=== PATIENT | female | born 1985 | race Caucasian/White ===

== ENCOUNTER 2019-07-23 06:15 | Day surgery (SDC) | payer OTHER ==
[2019-07-11 11:09] VITALS: BMI 39.3
[2019-07-23] MEDS ORDERED: BUPIVACAINE HCL/PF 2.5 MG/ML - 30 ML VIAL IJ ONE (07:24)
[2019-07-23] MEDS ORDERED: MIDAZOLAM HCL 2 MG/2 ML SINGLE DOSE VIAL ONE (07:46)
[2019-07-23] MEDS ORDERED: PROPOFOL 20 ML ONE ×3 (07:47→08:32)
[2019-07-23] MEDS ORDERED: ROCURONIUM BROMIDE 50 MG/5 ML SYRINGE ONE (07:47)
[2019-07-23] MEDS ORDERED: SUCCINYLCHOLINE CHLORIDE 200 MG/10 ML SYRINGE ONE (07:47)
[2019-07-23] MEDS ORDERED: EPHEDRINE SULFATE/0.9% NACL/PF 50 MG/10 ML SYRINGE NR ONE (07:48)
[2019-07-23] MEDS ORDERED: LIDOCAINE HCL/PF 2% SDV 5ML VIAL ONE (08:11)
[2019-07-23] MEDS ORDERED: ONDANSETRON 4 MG/2 ML VIAL ONE ×2 (08:18→10:39)
[2019-07-23] MEDS ORDERED: DEXAMETHASONE SOD PHOSPHATE 4 MG/1 ML VIAL ONE (08:18)
[2019-07-23] MEDS ORDERED: ceFAZolin SODIUM 1 GM VIAL ONE (08:18)
[2019-07-23] MEDS ORDERED: KETOROLAC TROMETHAMINE 30 MG/1 ML VIAL ONE (08:22)
[2019-07-23] MEDS ORDERED: NEOSTIGMINE METHYLSULFATE 0.5 MG/ML - 10 ML MDV ONE (08:23)
[2019-07-23] MEDS ORDERED: GLYCOPYRROLATE 0.2 MG/1 ML VIAL ONE ×2 (08:23→09:52)
[2019-07-23] MEDS ORDERED: PHENYLEPHRINE HCL 10 MG/1 ML SINGLE DOSE VIAL ONE (09:11)
[2019-07-23] MEDS ORDERED: DESFLURANE GAS 240 ML BOTTLE IH ONE (09:24)
[2019-07-23] MEDS ORDERED: BUPIVACAINE HCL/PF 0.25% (2.5MG/ML) 10 ML VIAL IJ ONE (09:42)
[2019-07-23] MEDS ORDERED: PROMETHAZINE HCL 50 MG/1 ML AMP IM PRN (10:03)
[2019-07-23] MEDS ORDERED: ONDANSETRON 4 MG/2 ML VIAL IVPUSH PRN ×2 (10:03→10:17)
[2019-07-23] MEDS ORDERED: oxyCODONE HCL 5 MG TABLET PO PRN ×3 (10:03→10:17)
--- NOTE | 2019-07-23 10:11 | OP ---
Operative Note - Note: Operative Date: 07/23/19 Pre-Operative Diagnosis: Epigastric Pain. GE Reflux Disease. Malfunctioning Implantable Device secondary to Gastric Band Operation: Removal of Gastric Band plus subcutaneous port component. Laparoscopic Lysis of Adhesions. Excision of fibrous capsule around stomach. Diagnostic Laparoscopy Findings: Large amount of adhesions between omentum and abdominal wall in LUQ. Also adhesions between omentum and left lobe of liver Fibrous capsule noted around stomach and gastric band Post-Operative Diagnosis: Same as Pre-op (Abdominal adhesions; fibrous capsule around stomach) Surgeon: Phil Knox Sports Photographer: Jose Lees Anesthesia: General Specimens Removed: Gastric Band plus sub-Q port component Estimated Blood Loss (mls): 30 Operative Report Dictated: Yes
[2019-07-23] MEDS ORDERED: FAMOTIDINE 20 MG/50 ML IVPB 20 MG/50 ML MG IVPB ONE (10:15)
[2019-07-23] MEDS ORDERED: SODIUM CHLORIDE 1,000 ML IV SCH (10:15)
--- NOTE | 2019-07-23 10:18 | SURG ---
Surgery Printer Assistant Note Printer Assistant: Jose Lees PA-C Date of Service: 07/23/19 Diagnosis: Epigastric Pain. GE Reflux Disease. Malfunctioning Implantable Device secondary to Gastric Band Procedure: Removal of Gastric Band plus subcutaneous port component. Laparoscopic Lysis of Adhesions. Excision of fibrous capsule around stomach. Diagnostic Laparoscopy I was present for the entirety of the operative procedure. For further detail, please refer to operative report. Visit type - Case Type Case Type: Scheduled - Emergency Emergency Visit: No - New patient This patient is new to me today: Yes Date on this admission: 07/23/19 - Critical Care Critical Care patient: No
[2019-07-23] MEDS ORDERED: FAMOTIDINE 20 MG PREMIXED IVPB IVPB ONE (10:20)
[2019-07-23] MEDS ORDERED: LACTATED RINGERS SOLUTION 1,000 ML IV SCH (10:30)
[2019-07-23] MEDS ORDERED: oxyCODONE HCL 5 MG TABLET ONE (11:40)
[2019-07-23] MEDS ORDERED: ENOXAPARIN NA (PORCINE) 40 MG/0.4 ML DISP.SYRIN SQ ONE ×2 (12:52→13:00)
[2019-07-23] MEDS ORDERED: ENOXAPARIN NA (PORCINE) 40 MG/0.4 ML DISP.SYRIN SQ SCH (13:00)
--- NOTE | 2019-07-23 13:04 | OP ---
DATE OF OPERATION: 07/23/2019 PREOPERATIVE DIAGNOSES: 1. Epigastric abdominal pain. 2. Gastroesophageal reflux disease. 3. Mechanical complication of implantable device secondary to gastric band. POSTOPERATIVE DIAGNOSES: 1. Epigastric abdominal pain. 2. Gastroesophageal reflux disease. 3. Mechanical complication of implantable device secondary to gastric band. 4. Abdominal adhesions. 5. Fibrous capsule around the stomach. PROCEDURE PERFORMED: 1. Removal of gastric band plus subcutaneous port component. 2. Laparoscopic lysis of adhesions. 3. Excision of fibrous capsule around the stomach. 4. Diagnostic laparoscopy. OPERATING SURGEON: Xander Freedman MD MANAGER OF PLANNING: JIM Plunkett ANESTHESIA: General. OPERATIVE PROCEDURE: The patient was brought in to the operating room, placed on the OR table in the supine position. All precautions were taken initially including padding for the back and the feet and Venodyne boots were placed on both lower extremities. At that point the abdomen was prepped and draped in the usual manner. A Veress needle was placed in the left upper quadrant and a pneumoperitoneum was established. With the use of a number 5 trocar and Optiport under direct vision, a number 5 trocar, bladeless, was placed in the left upper quadrant. Through that trocar, a laparoscopic camera was placed. There were noted to be adhesions between the omentum and anterior abdominal wall and also in the upper abdomen by the liver and the band. A number 5 bladeless trocar was then placed below the left costal margin. With the camera now placed in that trocar, the left upper quadrant trocar was used to lyse the adhesions, mostly with blunt dissection, but also sharp dissection with the laparoscopic scissors. This was extensive, and once it was done, a clearing was now in the upper abdomen. A number 15 bladeless trocar was placed in the right upper quadrant along with a number 5 bladeless trocar. A Leslie liver retractor was then placed in the epigastrium in an attempt to retract the left lobe of the liver. However, the trocar could not be placed underneath the left lobe as there was a large amount of omentum attached to the undersurface of the left lobe of the liver. As the content assistant surgeon retracted the band tubing, which went through this omental tissue upwards toward the anterior abdominal wall, the content assistant surgeon placed a laparoscopic instrument inferior to the liver and lifted the left lobe up. The LigaSure device was now used to dissect the omentum off the lesser curvature of the liver. This was done from lesser curvature to greater curvature until the omentum was removed and the entire liver was now exposed. With the liver retractor now retracting the left lobe, the patient was placed in 20-degree reverse Trendelenburg position by Anesthesia. The band tubing was noted and the content assistant surgeon retracted the band tubing towards the patient's left side and the operating surgeon used the electrocautery to dissect the scar tissue off the band tubing. This continued until the band was reached around the stomach. The scar tissue around the band was now dissected with electrocautery on the entire lesser curve until the entire band on the lesser curve was in full view. At this point, the operating surgeon grabbed the tubing and pulled it toward the patient's right side as the content assistant surgeon gently retracted the stomach inferiorly by the band. Here, electrocautery was used to dissect the scar tissue and the fibrous capsule off the band until the entire anterior surface of the band was in full view. The band was then opened and the band tubing was cut at the take off to the subcutaneous port and then band was then removed from around the stomach and sent off the field as specimen to Pathology. Attention was now directed to the fibrous capsule around the stomach, which was dissected off the stomach wall very gently with a laparoscopic scissors. Once this was completed, saline was placed around the upper part of the stomach, where the band and the dissection had been performed. Anesthesia then injected air into the orogastric tube, which showed the entire stomach distended and there were no signs of any bubbles. At this point, under direct vision, all trocars were removed from the abdominal cavity and pneumoperitoneum was released. The number 15 trocar site in the right upper quadrant was now extended laterally and dissection continued with electrocautery down to the port on the right anterior rectus muscle. The fibrous capsule around the port was removed with electrocautery and the port and the rest of the tubing were removed from the operative field and sent off the field as a specimen to Pathology with the rest of the band. At this juncture, all trocar sites received 0.25% Marcaine. The number 15 trocar site was closed with 3-0 Vicryl in the subcutaneous tissue and all trocar sites were closed with 4-0 Biosyn in subcuticular fashion. Dressings were applied. Patient awoken from anesthesia and transferred out of the operating room to the recovery room in stable condition. Anesthesia in the case was general. Surgeon, Dr. Freedman. Saw Superintendent, Jose Lees, physician's content assistant. Expected blood loss 30 mL. Patient transferred to recovery room in stable condition. XANDER FREEDMAN M.D. [id number]
[2019-07-23 13:31] VITALS: TEMP 98
[2019-07-23 14:02] VITALS: BP 108/78; PULSE 75
[2019-07-23] MEDS ORDERED: FAMOTIDINE 20 MG/50 ML IVPB 20 MG/50 ML MG IVPB SCH (22:00)
[2019-07-24] MEDS ORDERED: ENOXAPARIN NA (PORCINE) 40 MG/0.4 ML DISP.SYRIN SQ SCH (10:00)
--- NOTE | 2019-07-25 17:48 | PATH ---
Surgical Pathology Report Patient Name: JOANNE LACEY [facility]. Rec. #: [id number] /Age/Gender: 1985 (Age: 34) / F Account: [id number] Location: [facility] Taken: 07/22/2019 Received: 07/23/2019 Reported: 07/25/2019 Physicians: Phil Knox M.D. Specimen(s) Received EXPLANTED BAND AND PORT Clinical History Mechanical complication Final Diagnosis EXPLANTED GASTRIC BAND AND PORT, REMOVAL: GASTRIC BAND AND PORT. MACROSCOPIC DIAGNOSIS. Electronically Signed Yuliya Rouse M.D. Gross Description Received fresh labeled "explanted band and port," is a 4.5 cm in diameter white, circular device, consistent with a gastric band. The band displays a 30 cm in length portion of white tubing extending from one aspect. Also received within the same container is a 3 cm in diameter x 1.5 cm in depth white, circular device, consistent with a port. The port displays a 27 cm in length portion of white tubing extending from one aspect. No soft tissue is present. No sections are submitted, gross only. DL/07/24/2019 saudi07/24/2019
== END 2019-07-23 14:00 | disposition home or self-care (01) ==
LOC: FASU 06:15
PROVIDERS: ATTEND Surgery
PROC: 0DN64ZZ Release Stomach, Percutaneous Endoscopic Approach (ICD-10-PCS; 2019-07-23)
PROC: 0DP64CZ Removal of Extraluminal Device from Stomach, Percutaneous Endoscopic Approach (ICD-10-PCS; principal; 2019-07-23 08:32)
DX: T85.518A Breakdown (mechanical) of other gastrointestinal prosthetic devices, implants and grafts, initial encounter (principal); K95.09 Other complications of gastric band procedure; K31.89 Other diseases of stomach and duodenum; R10.13 Epigastric pain; K21.9 Gastro-esophageal reflux disease without esophagitis; K66.0 Peritoneal adhesions (postprocedural) (postinfection); Y73.3 Surgical instruments, materials and gastroenterology and urology devices (including sutures) associated with adverse incidents; Y93.89 Activity, other specified; Y92.89 Other specified places as the place of occurrence of the external cause
CPT/HCPCS: 74241-TC-FY; 81025; 87081; 94760

== ENCOUNTER 2020-03-26 12:40 | Day surgery (SDC) | payer OTHER ==
[2020-03-25 09:27] VITALS: BMI 43.0
[2020-03-26] MEDS ORDERED: PROPOFOL 20 ML ONE ×4 (13:47)
[2020-03-26] MEDS ORDERED: LIDOCAINE HCL/PF 2% SDV 5ML VIAL ONE (13:48)
[2020-03-27 08:40] VITALS: BP 116/80; PULSE 92; TEMP 98.1
--- NOTE | 2020-03-31 11:45 | PATH ---
Surgical Pathology Report Patient Name: JOANNE LACEY [facility]. Rec. #: [id number] /Age/Gender: 1985 (Age: 34) / F Account: [id number] Location: [facility] Taken: 03/26/2020 Received: 03/26/2020 Reported: 03/31/2020 Physicians: Jarocho Rao M.D. Specimen(s) Received GASTRIC ANTRUM Clinical History Peptic disease, preop bariatric surgery Postoperative diagnosis: Gastritis Final Diagnosis GASTRIC ANTRUM, BIOPSY: MILD CHRONIC GASTRITIS WITH FEATURES OF REACTIVE GASTROPATHY. IMMUNOSTAIN IS NEGATIVE FOR H.PYLORI ORGANISMS. Electronically Signed Yolanda Lara M.D. Gross Description Received in formalin, labeled "gastric antrum" are 2 chauhan, irregular portions of soft tissue measuring 0.3 and 0.4 cm. in greatest dimension. The specimens are submitted in toto in one cassette. /03/27/2020 [facility]03/27/2020
== END 2020-03-26 15:15 | disposition home or self-care (01) ==
LOC: FASU-ENDO 12:40
PROVIDERS: ATTEND Internal Medicine Gastroenterology
PROC: 0DB78ZX Excision of Stomach, Pylorus, Via Natural or Artificial Opening Endoscopic, Diagnostic (ICD-10-PCS; principal; 2020-03-26 13:58)
DX: Z01.818 Encounter for other preprocedural examination (principal); K29.50 Unspecified chronic gastritis without bleeding; K31.9 Disease of stomach and duodenum, unspecified; E66.9 Obesity, unspecified; Z68.41 Body mass index [BMI] 40.0-44.9, adult
CPT/HCPCS: 84703; 88305-TC; 88342-TC

== ENCOUNTER 2020-03-30 10:51 | Inpatient (IN) | payer OTHER ==
[2020-03-30 11:16] VITALS: BMI 43.3
[2020-03-30] MEDS ORDERED: BUPIVACAINE HCL/PF 0.25% (2.5MG/ML) 10 ML VIAL ONE (12:27)
[2020-03-30] MEDS ORDERED: PROPOFOL 20 ML ONE ×3 (12:34→14:54)
[2020-03-30] MEDS ORDERED: SODIUM CHLORIDE 0.9% P/F 10 ML VIAL IJ ONE (12:36)
[2020-03-30] MEDS ORDERED: ceFAZolin SODIUM 1 GM VIAL ONE (12:36)
[2020-03-30] MEDS ORDERED: fentaNYL CITRATE 250 MCG/5 ML VIAL ONE (14:36)
[2020-03-30] MEDS ORDERED: ROPIVACAINE HCL 0.5% 30ML VIAL ONE (14:47)
[2020-03-30] MEDS ORDERED: MIDAZOLAM HCL 2 MG/2 ML SINGLE DOSE VIAL ONE (14:47)
[2020-03-30] MEDS ORDERED: ROCURONIUM BROMIDE 50 MG/5 ML SYRINGE ONE (14:54)
[2020-03-30] MEDS ORDERED: ACETAMINOPHEN INJECTION 100 ML IVPB ONE (14:56)
[2020-03-30] MEDS ORDERED: HALOPERIDOL LACTATE 5 MG/ML ONE (15:04)
[2020-03-30] MEDS ORDERED: SCOPOLAMINE HYDROBROMIDE 1 PATCH PATCH.TD72 ONE (15:05)
[2020-03-30] MEDS ORDERED: NEOSTIGMINE METHYLSULFATE 0.5 MG/ML - 10 ML MDV ONE (15:34)
[2020-03-30] MEDS ORDERED: GLYCOPYRROLATE 0.2 MG/1 ML VIAL ONE ×3 (15:35→16:19)
[2020-03-30] MEDS ORDERED: ONDANSETRON 4 MG/2 ML VIAL ONE (15:35)
[2020-03-30] MEDS ORDERED: BUPIVACAINE HCL/PF 0.5% (5MG/ML) 10 ML VIAL ONE (15:51)
[2020-03-30] MEDS ORDERED: ONDANSETRON 4 MG/2 ML VIAL IVPUSH PRN ×2 (16:01→16:32)
[2020-03-30] MEDS ORDERED: HYDROmorphone HCL CARPU-JECT 1 MG/1 ML DISP.SYRIN IVPUSH PRN (16:01)
[2020-03-30] MEDS ORDERED: LACTATED RINGERS SOLUTION 1,000 ML IV SCH (16:15)
[2020-03-30] MEDS ORDERED: HYDROmorphone HCl 2 MG/ML VIAL IM PRN (16:32)
[2020-03-30] MEDS ORDERED: HYDROmorphone HCl 2 MG/ML VIAL IVPB PRN (16:34)
[2020-03-30] MEDS ORDERED: SODIUM CHLORIDE 1,000 ML IV SCH (16:45)
[2020-03-30] MEDS: METOCLOPRAMIDE HCL INJECTION 10 MG/2 ML VIAL IVPUSH SCH (16:50)
[2020-03-30] MEDS ORDERED: FAMOTIDINE 20 MG PREMIXED IVPB IVPB ONE (16:50)
[2020-03-30] MEDS ORDERED: METOCLOPRAMIDE HCL INJECTION 10 MG/2 ML VIAL ONE (16:56)
[2020-03-30] MEDS ORDERED: FAMOTIDINE 20 MG/50 ML IVPB 20 MG/50 ML MG IVPB ONE (16:56)
[2020-03-30] MEDS: HYDROmorphone HCL CARPU-JECT 1 MG/1 ML DISP.SYRIN IVPUSH PRN ×2 (17:00→17:20)
[2020-03-30] MEDS ORDERED: HYDROmorphone HCL 0.5 MG/0.5 ML SYRINGE ONE ×2 (17:06→17:13)
[2020-03-30 17:38] LABS: HEMATOCRIT 39.5 % (32.4-45.2); HEMOGLOBIN 13.2 GM/dl (10.7-15.3); MCH 28.2 pg (25.7-33.7); MCHC 33.3 g/dl (32.0-36.0); MEAN CELL VOLUME 84.6 fl (80-96); MEAN PLT VOLUME 7.9 fl (7.5-11.1); PLATELET COUNT 285 K/MM3 (134-434); RBC 4.68 M/mm3 (3.60-5.2); RDW 12.6 % (11.6-15.6); WHITE BLOOD COUNT 9.7 K/mm3 (4.0-10.8)
[2020-03-30 17:48] LABS: ALBUMIN 3.8 g/dl (3.4-5.0); BILIRUBIN,TOTAL 0.6 mg/dl (0.2-1); CALCIUM 8.1 mg/dl (8.5-10); CREATININE 0.7 mg/dl (0.55-1.3); POTASSIUM 3.9 mmol/L (3.5-5.1); TOT PROT 6.5 g/dl (6.4-8.2)
--- NOTE | 2020-03-30 18:24 | OP ---
Operative Note - Note: Operative Date: 03/30/20 Pre-Operative Diagnosis: Morbid Obesity Operation: Laparoscopic Vertical Sleeve Gastrectomy. Diagnostic Laparoscopy Findings: Greater curve Sleeve Gastrectomy performed with #[address] Post-Operative Diagnosis: Same as Pre-op Surgeon: Phil Knox Prop Worker: Fadi Haas Anesthesia: General Specimens Removed: Greater curve of stomach Estimated Blood Loss (mls): 30 Operative Report Dictated: Yes
[2020-03-30] MEDS: FAMOTIDINE 20 MG/50 ML IVPB 20 MG/50 ML MG IVPB SCH (21:11)
[2020-03-31] MEDS: METOCLOPRAMIDE HCL INJECTION 10 MG/2 ML VIAL IVPUSH SCH ×3 (00:25→12:05)
[2020-03-31 02:56] VITALS: BP 97/56; PULSE 69; TEMP 98.6
[2020-03-31 08:17] LABS: ALBUMIN 3.7 g/dl (3.4-5.0); BILIRUBIN,TOTAL 0.8 mg/dl (0.2-1); CALCIUM 8.4 mg/dl (8.5-10); CREATININE 0.7 mg/dl (0.55-1.3); POTASSIUM 4.3 mmol/L (3.5-5.1); TOT PROT 6.4 g/dl (6.4-8.2)
[2020-03-31 08:18] LABS: HEMATOCRIT 38.6 % (32.4-45.2); MCH 28.2 pg (25.7-33.7); MCHC 33.6 g/dl (32.0-36.0); MEAN CELL VOLUME 83.8 fl (80-96); MEAN PLT VOLUME 7.7 fl (7.5-11.1); PLATELET COUNT 281 K/MM3 (134-434); RDW 12.3 % (11.6-15.6); WHITE BLOOD COUNT 9.6 K/mm3 (4.0-10.8)
[2020-03-31] MEDS: FAMOTIDINE 20 MG/50 ML IVPB 20 MG/50 ML MG IVPB SCH (10:05)
--- NOTE | 2020-03-31 11:08 | OP ---
DATE OF OPERATION: 03/30/2020 PREOPERATIVE DIAGNOSIS: Morbid obesity. POSTOPERATIVE DIAGNOSIS: Morbid obesity. PROCEDURE PERFORMED: 1. Laparoscopic vertical sleeve gastrectomy. 2. Diagnostic laparoscopy. OPERATING SURGEON: Phil Knox MD INTERPRETER FOR THE DEAF: Fadi Haas MD ANESTHESIA: General. EXPECTED BLOOD LOSS: 30 mL. DISPOSITION: Patient transferred to recovery room in stable condition. OPERATIVE PROCEDURE: Patient was brought into the operating room, placed on the OR table in the supine position. All precautions were taken initially including padding of the back and the feet and Venodyne boots were placed on both lower extremities. At that point the abdomen was prepped and draped in the usual manner. A Veress needle was placed in the left upper quadrant and a pneumoperitoneum was established. Under direct vision with a No. 5 bladeless trocar and a laparoscopic camera inside the trocar was placed in the left upper quadrant and through that trocar a laparoscopic camera was placed. Under direct vision a No. 15 bladeless trocar was placed in the midline in the supraumbilical position followed by a No. 5 bladeless trocar in the right upper quadrant and a No. 5 bladeless trocar below the left costal margin. A Leslie liver retractor was then placed in the epigastrium to retract the left lobe of the liver. The patient was then placed in a 20-degree reverse Trendelenburg position by Anesthesia. The pylorus was noted on the distal stomach and from that 6 cm was measured proximally. Here the operating surgeon lifted the stomach toward the anterior abdominal wall and the assistant teacher primary surgeon retracted the gastrocolic ligament inferiorly. The LigaSure device was used to dissect the gastrocolic ligament and then the short gastric vessels off the greater curve of the stomach. This continued in a superior and vertical direction until the final short gastric vessel between the superior pole of the spleen and proximal fundus was divided. At this juncture Anesthesia advanced a No. 36 bougie along the lesser curve of the stomach into the distal part of the stomach or the antrum. With the bougie held along the lesser curvature a series of flor were performed, the first 2 being black load flor 6 cm in length along the bougie. This was followed by a series of purple flor also 6 cm in length also along the bougie until the final staple was fired in the left upper quadrant and the greater curve was now completely detached from the lesser curve. It should be noted that prior to firing the flor both anterior and posterior don were checked that they were equal and in the area of the esophagogastric junction approximately 1 to 1.5 cm of serosa remained on the anterior and posterior surface. At this juncture saline was placed around the staple line. Anesthesia inserted air into the bougie which showed the entire stomach distended, no sign of obstruction and no leaks were noted. At this point the stomach was removed through the No. 15 trocar site and off the field as specimen to Pathology. There was minor oozing from the distal part of the stomach in the area of the 1st staple and this was oversewn with the Endostitch to provide hemostasis. Surgicel was placed along the staple line for further hemostasis and then the No. 15 trocar site was closed with the Endoclose device to prevent internal hernia and to prevent bleeding. Under direct vision all trocars were removed and pneumoperitoneum released. All trocar sites were received 0.25% Marcaine. The No. 15 was closed with 3-0 Vicryl in the subcutaneous tissue and then all trocar sites were closed with 4-0 Biosyn in a subcuticular fashion. Dressings were applied. Patient awoke from anesthesia and transferred out of the operating room to the recovery room in stable condition. Albert [id number]
--- NOTE | 2020-03-31 11:19 | PN ---
Progress Note (short form) - Note Progress Note: POD#1 Afebrile; VSS P-61-83 Pt doing well No N/V Tolerating PO clear liquids- 2 oz PO TID P/E- Abd- all trocar sites clean, dry WBC-9.6 H/H-13.0/38.6 UGI- no leak, no obstruction P- PO clear liquids- 2 oz PO TID D/C pt home F/U in 9 days
[2020-03-31] MEDS ORDERED: oxyCODONE HCL 5 MG TABLET PO PRN (11:20)
[2020-03-31] MEDS ORDERED: ACETAMINOPHEN 325 MG TABLET (FP) PO PRN (11:20)
[2020-03-31] MEDS ORDERED: SODIUM CHLORIDE 1,000 ML IV SCH (11:30)
--- NOTE | 2020-03-31 18:49 | DS ---
DATE OF ADMISSION: 03/30/2020 DATE OF DISCHARGE: 03/31/2020 HOSPITAL COURSE: The patient is a 34-year-old woman who has a history of morbid obesity for several years despite multiple attempts at dietary weight loss. She is admitted to [facility] on March 30, 2020, where a laparoscopic vertical sleeve gastrectomy was performed. The patient's operative report is in the details of the report. Postoperative the patient was sent to recovery room, where she was stabilized and sent to the 2nd floor on the lens marker overnight. She had an uneventful night, and remained stable, and on the morning of March 31, 2020, she was brought to radiology, where a Gastrografin swallow showed no leak and no signs of obstruction. The patient returned to her room, where she was given 2 ounces of clear liquid and tolerated well. The patient had normal vital signs throughout the night and into the morning of March 31, 2020. The lab values shows a hemoglobin and hematocrit stable, and her chemistries within normal limits. Patient was given full instructions for discharge home, and on March 31, 2020, the patient was discharged home with instructions and followup with primary surgeon in 9 days. XANDER FREEDMAN M.D. [id number]
--- NOTE | 2020-04-01 15:43 | PATH ---
Surgical Pathology Report Patient Name: JOANNE LACEY Med. Rec. #: [id number] /Age/Gender: 1985 (Age: 34) / F Account: [id number] Location: [facility] Taken: 03/30/2020 Received: 03/30/2020 Reported: 04/01/2020 Physicians: Phil Knox M.D. Specimen(s) Received GREATER CURVATURE STOMACH Clinical History Morbid obesity Final Diagnosis GREATER CURVATURE OF STOMACH, LAPAROSCOPIC GASTRIC SLEEVE EXCISION: PORTION OF STOMACH SHOWING MILD CHRONIC MUCOSAL INFLAMMATION. IMMUNOSTAIN IS NEGATIVE FOR H. PYLORI ORGANISMS. Electronically Signed Yolanda Lara M.D. Gross Description Received in formalin, labeled "greater curvature of stomach," is a 70 gram, 17.0 x 2.5 x 2.3 cm. portion of stomach with a stapled margin of resection. The serosa is chauhan-ramirez with minimal attached fat. The mucosa is chauhan-pink with normal folds. No mucosal masses are identified. Deputy District Customs Director sections are submitted in one cassette. /03/31/2020 [facility]03/31/2020
== END 2020-03-31 13:45 | disposition home or self-care (01) | DRG 621 ==
LOC: FM/S 10:51
PROVIDERS: ADMIT Surgery; ATTEND Surgery
PROC: 0DB64Z3 Excision of Stomach, Percutaneous Endoscopic Approach, Vertical (ICD-10-PCS; principal; 2020-03-30 15:39)
DX: E66.01 Morbid (severe) obesity due to excess calories (principal); Z68.41 Body mass index [BMI] 40.0-44.9, adult; K21.9 Gastro-esophageal reflux disease without esophagitis; E78.5 Hyperlipidemia, unspecified
CPT/HCPCS: 36415; 74240-TC-FY; 80053; 84703; 85027; 88305-TC; 94760; J0131